=== PATIENT | female | born 1990 | race Caucasian/White ===

== ENCOUNTER 2020-02-12 19:31 | Emergency (ER) | payer OTHER ==
[~2020-02-12] VITALS: Ht 149.9 cm; Wt 59.9 kg
[2020-02-12 19:49] VITALS: BP_SYST 135
--- NOTE | 2020-02-12 19:49 | NUR ---
Patient to ER bed 4 to gown for evaluation. Side rails up. Report given to APOLONIA CHARLES.
--- NOTE | 2020-02-12 19:52 | NUR ---
ER at bedside examining patient.
--- NOTE | 2020-02-12 19:55 | NUR ---
Pt presents to the ER for head laceration x today. Pt reports pipe falling on her head. Denies LOC, dizziness. Laceration approx at 0.5 cm. No active bleeding from laceration site. Pt does not recall last tetnus shot.
--- NOTE | 2020-02-12 20:05 | NUR ---
at bedside. Patient has a 0.5 cm laceration to top head by hairline. applied dermabond using sterile technique. Site cleansed with normal saline. No bleeding noted. Pt tolerated well.
[2020-02-12] MEDS ORDERED: DIPH-TET-PERTUS Vaccine 0.5 ML VIAL (ADACEL) I.M. ONE (20:15)
[2020-02-12 20:16] VITALS: BP_SYST 135
--- NOTE | 2020-02-12 20:16 | NUR ---
Patient given written and verbal discharge instructions and verbalizes understanding. ER MD discussed with patient the results and treatment provided. Patient in stable condition. ID arm band removed. Rx of motrin 600 given. Patient educated on pain management and to follow up with PMD. Opportunity for questions provided and answered. Medication side effect fact sheet provided.
== END 2020-02-12 20:16 | disposition home or self-care (01) ==
LOC: SED 19:31
DX: S01.01XA Laceration without foreign body of scalp, initial encounter (principal); W22.8XXA Striking against or struck by other objects, initial encounter; Y93.89 Activity, other specified; Y92.89 Other specified places as the place of occurrence of the external cause; Y99.8 Other external cause status
CPT/HCPCS: 90715; 99283